=== PATIENT | male | born 1950 | race Hispanic/Latino ===

== ENCOUNTER 2017-12-02 17:58 | Emergency (ER) | payer OTHER ==
[~2017-12-02] VITALS: Ht 160 cm; Wt 65.8 kg
[~2017-12-02 17:58] MED LIST: AMITIZA24 MCG PO; CARBIDOPA/LEVOD1 TE1; CARBIDOPA/LEVOD1 TE1 PO; MOTRIN 400 MG400 MG PO; MOTRIN 600 MG600 MG PO; PRILOSEC10 MG PO; SINEMET 25-1001 TAB PO; VITAMIN D1000 IU PO
--- NOTE | 2017-12-02 19:02 | ED GI/GU/ABDOMINAL COMPLAINT ---
History of Present Illness General Chief Complaint: Male Genitourinary Problems Stated Complaint: PAINFUL URINATION Source: patient, old records Exam Limitations: no limitations Vital Signs & Intake/Output Vital Signs & Intake/Output Vital Signs Date Time Temp Pulse Resp B/P B/P Pulse O2 O2 Flow FiO2 Mean Ox Delivery Rate 12/02 2008 98.1 89 18 171/81 99 Room Air 12/02 1906 Room Air 12/02 1805 97.1 97 18 180/71 96 Room Air Allergies Coded Allergies: hydrocodone (From VICODIN) (Intermediate, RASH 12/02/17) Triage Note: PT TO ER C/C 8 DAY HX OF BURNING ON URINATION, DENIES ABD PAIN, FEVERS OR HEMATURIA. Triage Nurses Notes Reviewed? yes Onset: Abrupt Duration: day(s): (8), constant Timing: recent history Quality/Severity: aching rectal pain with bowel movements only Location: rectum Activities at Onset: bowel movement No Modifying Factors: none HPI: 67-year-old male with history of Parkinson's presents to ER complaining of a three-day history of constipation and pain to his rectum. Contrary to triage note patient has no burning with urination he denies any pain dysuria urgency frequency. There are no urinary complaints. He has not been taking anything for symptoms. No history of previous constipation. No history of abdominal surgeries in the past. He denies any black or bloody stools no abdominal pain fever chills nausea vomiting. he is otherwise without any complaints (Franklin Cazares) Reconcile Medications Amantadine HCl (Amantadine) 100 MG TABLET 1 TAB PO BID PARKINSONS (Reported) Carbidopa/Levodopa (Carbidopa-Levodopa 25-100 Tab) 25 MG-100 MG TABLET 1 TAB PO TID PARKINSONS (Reported) Ibuprofen 600 MG TABLET 1 TAB PO TID PAIN/INFLAMMATION (Reported) with food Linaclotide (Linzess) 145 MCG CAPSULE 1 CAP PO DAILY GI (Reported) Magnesium Citrate 296 ML SOLUTION 300 ML PO ONCE constipation (Serge Cummings MD) Past History Travel History Traveled to [place] past 21 day No Medical History Any Pertinent Medical History? see below for history Neurological: Parkinson's disease EENT: NONE Cardiovascular: NONE Respiratory: NONE Gastrointestinal: NONE Hepatic: NONE Renal: NONE Musculoskeletal: NONE Psychiatric: NONE Endocrine: NONE Blood Disorders: NONE Cancer(s): NONE AUTOMOTIVE TITLE CLERK/Reproductive: NONE History of MRSA: No History of VRE: No History of CDIFF: No Surgical History Surgical History: N Psychosocial History Who do you live with Patient/Self Services at Home Home Health Aide What is your primary language Kenyan Tobacco Use: Quit <30 days ago Family History Hx Contributory? No (Franklin Cazares) Review of Systems Review of Systems Constitutional: Reports: see HPI. Comments Review of systems: See HPI, All other systems negative. Constitutional, no chills no fever, HEENT: no sore throat no congestioN Cardiovascular: No chest pain Skin: no rashes, no change in skin Respiratory: No dyspnea no cough GI: No nausea no vomiting, no diarrhea (+) constipation : no dysuria, hematuria, frequency Muscle skeletal: No joint pain, no back pain Neurologic: , no headache Heme/endocrine: No bruising Immunology: No lymphadenopathy (Franklin Cazares) Physical Exam Physical Exam General Appearance: well developed/nourished, no apparent distress, alert, awake Gastrointestinal: soft Comments: Well-developed well-nourished person in no acute distress HEENT: Normal EENT exam; PERRL, EOMI HEAD is atraumatic. moist mucous membranes. Neck: Supple, normal range of motion Back: no CVA tenderness. Full range of motion Cardiovascular: Regular rate and rhythms no murmur Respiratory: No respiratory distress. Patient speaking in full complete sentences. Breath sounds clear to auscultation bilaterally: NO W/R/R Abdomen: Soft, nontender nondistended no rebound no guarding Rectal: no impaction, brown stool, guaiac neg stool no hemorrhoid, no fissure Extremity: No edema, full range of motion of extremities Neuro: Alert oriented x3, motor sensory normal, There were no obvious focal neurologic abnormalities. Skin: No appreciable rash on exposed skin, skin is warm and dry. Psych: Mood and affect is normal, memory and judgment is normal. Core Measures ACS in differential dx? No Sepsis Present: No Sepsis Focused Exam Completed? No (Franklin Cazares) Progress Differential Diagnosis: UTI/pyelo, obstruction, constipation, impaction Plan of Care: Orders Procedure Date/time Status Add-on Test (ER Only) 12/02 1854 Active CULTURE,URINE 12/02 183 Active URINALYSIS 12/02 1801 Complete Laboratory Tests 12/02/17 1830: Urinalysis MOD H, Urine Color YEL, Urine Clarity CLEAR, Urine pH 6.0, Ur Specific [place] >= 1.030, Urine Protein 30 H, Urine Ketones TRACE H, Urine Nitrite NEG, Urine Bilirubin NEG, Urine Urobilinogen 1.0, Ur Leukocyte Esterase NEG, Ur Microscopic SEDIMENT EXAMINED, Urine WBC RARE, Urine Bacteria FEW H, Urine Mucus MOD H, Urine Hemoglobin NEG, Urine Glucose 250 H Microbiology 12/02 1829 URINE ROUT: Urine Culture - RECD LABS SENT FROM TRIAGE, ON MY EVAL THE PT HAS NO SX. complaining only of constipation x 8 days. no evidence of impaction on rectal exam. I discussed with the patient at length all of their results. I had an extensive conversation regarding need for close follow up with their primary care physician this week as well as return precautions. I answered all of their questions, they feel comfortable with the plan and follow-up care. Diagnostic Imaging: Viewed by Me: Radiology Read. Discussed w/RAD: Radiology Read. Radiology Impression: PATIENT: CYRIL VAUGHAN PRESENT AGE : 67 PATIENT ACCOUNT NO: [id number] : 49 LOCATION: [facility] ORDERING PHYSICIAN: Franklin WHIPPLE SERVICE DATE: 12/02/17 EXAM TYPE: RAD - XRY- ABDOMEN-SINGLE VIEW EXAMINATION: XR ABDOMEN CLINICAL INDICATION: Pain. Assess for obstruction or constipation. COMPARISON: CT of the abdomen and pelvis from 10/15/2015 TECHNIQUE: AP view of the abdomen. FINDINGS: There is a moderate to large volume of air and stool seen within the colon to the rectum. This is most notable in the left upper quadrant. No definitive small bowel dilatation. No evidence of free air on these supine images. No acute osseous abnormalities are evident. There is mild multilevel degenerative change of the lumbar spine as well as evidence of prior discectomy and interbody fusion device placement at L4 -L5 and L5-S1, stable. IMPRESSION: There is a moderate to large volume of air and stool seen throughout the colon. No definitively dilated loops of small bowel. DICTATED BY: Nanette Perdomo MD DATE/TIME DICTATED:12/02/171949 BRINELL TESTER:HANNAH DATE/TIME TRANSCRIBED:12/02/171949 CONFIDENTIAL, DO NOT COPY WITHOUT APPROPRIATE AUTHORIZATION. <Electronically signed in Other Vendor System> SIGNED BY: Nanette Perdomo MD 12/02/171955 Initial ED EKG: none (Franklin Cazares) Departure Departure Time of Disposition: 1999 Disposition: HOME OR SELF CARE Condition: Stable Clinical Impression Primary Impression: Constipation Referrals: Omar Oquendo APRN (PCP/Family) Additional Instructions: magnesium citrate as directed. use over the counter miralax or stool softeners such as dulcolax. Follow up with your pmd, return with any concerns Departure Forms: Customer Survey General Discharge Information Prescriptions: Current Visit Scripts Magnesium Citrate 300 ML PO ONCE #300 ML (Franklin Cazares) PA/MEAT SCRUBBER Co-Sign Statement Statement: ED Attending supervision documentation- x I saw and evaluated the patient. I have also reviewed all the pertinent lab results and diagnostic results. I agree with the findings and the plan of care as documented in the PA's/MEAT SCRUBBER's documentation. [] I have reviewed the ED Record and agree with the PA's/MEAT SCRUBBER's documentation. [] Additions or exceptions (if any) to the PAs/MEAT SCRUBBER's note and plan are summarized below: [] (Emiliano MARY,Serge)
[2017-12-02] MEDS ORDERED: AMANTADINE100 M2 PO (19:17)
[2017-12-02] MEDS ORDERED: CARBIDOPA-LEVO1 EAC7 PO (19:17)
[2017-12-02] MEDS ORDERED: IBUPROFEN600 M1 PO (19:18)
[2017-12-02] MEDS ORDERED: LINZESS145 MC1 PO (19:18)
--- NOTE | 2017-12-02 19:56 | RADIOLOGY REPORT ---
EXAMINATION: XR ABDOMEN CLINICAL INDICATION: Pain. Assess for obstruction or constipation. COMPARISON: CT of the abdomen and pelvis from 10/15/2015 TECHNIQUE: AP view of the abdomen. FINDINGS: There is a moderate to large volume of air and stool seen within the colon to the rectum. This is most notable in the left upper quadrant. No definitive small bowel dilatation. No evidence of free air on these supine images. No acute osseous abnormalities are evident. There is mild multilevel degenerative change of the lumbar spine as well as evidence of prior discectomy and interbody fusion device placement at L4-L5 and L5-S1, stable. IMPRESSION: There is a moderate to large volume of air and stool seen throughout the colon. No definitively dilated loops of small bowel.
[2017-12-02] MEDS ORDERED: MAGNESIUM CITR296 ML PO (19:59)
[2017-12-02 20:09] VITALS: BP 171/81
== END 2017-12-02 20:46 ==
LOC: ERH 17:58
DX: K59.00 Constipation, unspecified (principal)
CPT/HCPCS: 74018; 81001; 87086